=== PATIENT | female | born 1960 | race African-American/Black ===

== ENCOUNTER 2021-02-28 14:38 | Outpatient (REF) | payer MEDICARE, SELFPAY ==
[2021-02-28 16:33] LABS: Binax Internal Control QC Valid; Binax Lot number: 9864; Binax Now Covid-19 Ag Negative (Negative)
== END 2021-02-28 14:39 | disposition home or self-care (01) ==
LOC: HO.LAB 14:38
PROVIDERS: Visit Provider Internal Medicine
DX: Z20.822 Contact with and (suspected) exposure to COVID-19 (principal)
CPT/HCPCS: 36415; C9803

== ENCOUNTER 2024-02-08 09:33 | Outpatient (AMB) | payer OTHER, SELFPAY ==
--- NOTE | 2024-02-08 09:41 | AM.OFFWIN_ITS ---
Intake Vital Signs 02/08/24 09:51 Height 5 ft Weight 145 lb BMI 28.3 BP 130/88 Blood Pressure Location Rt brachial Position Sitting Pulse 81 Pulse Source Pulse Oximeter Pulse Oximetry (%) 97 Oxygen Delivery Method Room Air Intake Visit Reasons: EP UTI? Intake Note: Patient here for lower abd pain, right sided lower back pain which has been present for about 3 days. Patient Tobacco Use Status: Never used Tobacco Allergies No Known Allergies Allergy (Verified 02/08/24 10:05) Do you need a note to return to daycare/school/sports/work: No HPI HPI Comments History of Present Illness Details History of Present Illness The patient is a 63-year-old female presenting with lower abdominal pain, headache, lower back pain, and nausea. Her symptoms have been accompanied by a notable malodor in the urine and mild dysuria. The onset of these symptoms was unspecified, but there was a low-grade fever reported approximately on Thursday. There is no history of hematuria noted. The patient denies any known allergies to medications, although she recalls an unspecified reaction many years ago. Her current symptoms suggest a urinary tract infection, and she reports experiencing frequent urination. Physical Exam General: Cooperative, healthy appearing, comfortable, no acute distress and well developed Orientation: Patient oriented x3 Limitations: No limitations Head: Normal to inspection Ears: Hearing grossly normal bilaterally Nose: Normal external nose present Face and sinus: Normal facial exam Eyes: Appearance normal, both eyes and all related structures Neck: Normal visual inspection and Yes full ROM Respiratory: Normal respiratory effort and able to speak in complete sentences. Skin: No rashes or lesions noted Neuro: Patient oriented x3 Extremities: Normal to inspection [facility] Social History Patient Tobacco Use Status: Never used Tobacco Review of Systems Const All systems reviewed & are unremarkable except as noted in HPI and below Physical Exam Vital Signs: Last Vital Signs Pulse 81 02/08/24 09:51 BP 130/88 02/08/24 09:51 Pulse Ox 97 02/08/24 09:51 Oxygen Delivery Method Room Air 02/08/24 09:51 BMI result Body Mass Index 28.3 Results AMB Urinalysis, Automated UA Leukoctes 70 Danuta/uL Last Edit by ROSELINE Denson on 02/08/24 09:5 9 UA Nitrite Negative Last Edit by ROSELINE Denson on 02/08/24 09:59 UA Urobilinogen 0.2 mg/dL [facility] 02/08/24 09:59 UA Protein 15 mg/dL Last Edit by Rosemarie Rose [facility] on 02/08/24 09:59 UA pH 6.0 Last Edit by Rosemarie Rose [facility] on 02/08/24 09:59 UA Blood 0 Wallace/uL Last Edit by Rosemarie Rose [facility] on 02/08/24 09:59 UA Specific [place] 1.025 Last Edit by Rosemarie Rose [facility] on 02/08/24 09:59 UA Ketone Negative Last Edit by Rosemarie Rose [facility] on 02/08/24 09:59 UA Bilirubin 1 mg/dL Last Edit by Rosemarie Rose [facility] on 02/08/24 09:59 UA Glucose 0 mg/dL Last Edit by Rosemarie Rose [facility] on 02/08/24 09:59 Results Reviewed Results Reviewed: Laboratory Last Values Urine pH (Auto) 6.0 02/08/24 09:58 Specific [place] (Auto) 1.025 02/08/24 09:58 Urine Protein (Auto) 15 mg/dL 02/08/24 09:58 Glucose (UA)(Auto) 0 mg/dL 02/08/24 09:58 Urine Ketones (Auto) Negative 02/08/24 09:58 Urine Blood (Auto) 0 Wallace/uL 02/08/24 09:58 Urine Nitrite (Auto) Negative 02/08/24 09:58 Urine Bilirubin (Auto) 1 mg/dL 02/08/24 09:58 Urine Urobilinogen (Auto) 0.2 mg/dL 02/08/24 09:58 Leukocyte Esterase (Auto) 70 Danuta/uL 02/08/24 09:58 Assessment & Plan Assessment & Plan (1) UTI (urinary tract infection): Code(s): N39.0 - Urinary tract infection, site not specified Qualifiers: Urinary tract infection type: acute cystitis Hematuria presence: without hematuria Qualified Code(s): N30.00 - Acute cystitis without hematuria Plan: Plan The patient has been diagnosed with a urinary tract infection based on UA + leuks, neg nitrites and her symptomatology. I will prescribe cefuroxime, to be taken twice daily for five days. In addition, a urine culture will be sent to confirm the presence of bacteria and ensure that the chosen antibiotic adequately covers the infection. In the event that the culture grows bacteria not covered by cefuroxime, the patient will be contacted to discuss alternative antibiotic therapy. The medication has been sent to [facility] in [place]. Patient was informed and verbally consented to the use of an ambient scribe for clinic note documentation during this visit. Orders: Orders AMB Urinalysis Automated Today Z13.9 - Encounter for screening, unspecified Urine Culture Today N39.0 - Urinary tract infection, site not specified Medications: New cefuroxime axetil 500 mg PO Q12H 10 tabs 0RF Coding Level of Care Code New Pt Level 3 (67493) Diagnoses Acute cystitis without hematuria N30.00 Urinary tract infection type: acute cystitis Hematuria presence: without hematuria
[2024-02-08 09:51] VITALS: BP 130/88; PULSE 81; O2SAT 97; BMI 28.3
--- OUTSIDE RECORDS SUMMARY | 2024-02-10 14:00 | XMS_ITS | Data Portability ---
Author Organization [place] - [facility], [facility] Address [address] [place] [address] Care Team Providers Care Electrician Aircraft Name Role Phone LING ROTH Primary Care Provider Assessment Encounter Date Assessment Date Assessment LastModified by Organization Details LastModified Time 01/29/2015 01/29/2015 NL CAN TOP SETTER EXAM aomrani Not available 12:24:11 09/27/2015 09/27/2015 OVARIAN CYST aomrani Not available 0 09/27/2015 11:38:55 Plan of Treatment Reminders Order Date Submit Date Provider Last Modified By Organization Details Last Modified Time Details Appointments None recorded. Lab pap, IG + HPV 2014 015 ANAIS Not available 5 04:00:46 urinalysis , dipstick 2014 015 aomrani In-Office Order, Internal Use Only DO Not Attach Compendium DO Not Attach Compendium, Do Not Delete/merge, [id number] 5 12:25:17 Referral None recorded. Procedures None recorded. Surgeries None recorded. Imaging MAMMO, screening, digital, bilateral 2014 015 dfabiano Not available 5 15:32:38 Medication Orders None recorded. Patient TargetsNo targets recorded. Patient Instructions Encounter Date Encounter Id Patient Instructions Last Modified By Organization Details Last Modified Time 01/29/2015 [id number] Stress Incontinence: Care Instructions mannitto Not available 02/01/2015 11:33:15 Patient presents for a well woman exam. Her history is unremarkable and her exam is normal. She has been counseled regarding Pap smear screening as per guidelines of every three years for cytology review with high risk HPV testing. I have recommended an annual Digital Bilateral Mammogram and an order sheet has been given to her. She has been counseled regarding menopausal symptoms including hot flushes, vaginal dryness, mood changes, and difficulty sleeping. She has been offered an appointment to speak to me specifically about these symptoms and some strategies to ease them if and when they occur. I have counseled her about the benefit of performing monthly self-breast exams. We spoke about the recommendation of 1200 mg of daily Calcium supplementation and 600iu of Vitamin D daily. She has been told to schedule a well woman Transmitter Chief exam in one year and to call us with any question or concerns regarding her health and welfare. acharette Not available 01/29/2015 11:28:55 Reason for Referral None Reported. Results Created Date Observation Date Name Description Value Unit Range Abnormal Flag Note LastModifiedBy Organization Detail LastModifiedTime 01/29/2015 urina lysis , dipst ick Interpretati on negati ve Not Available In-Office Order Internal Use Only DO Not Attach Compendium DO Not Attach Compendium, Do Not Delete/merge, [id number] 01/29/2015 12:00:06 01/30/20 15 02/02/2015 pap, IG + HPV HPV result Negati ve negati ve APTIM A HPV assay detec ts 14 high risk HPV types (HPV 16,18 ,31,3 3,35, 39,45 , 51,52 ,56,5 8,59, 66,68 ). The assay is FDA appro mon[place] for testi ng ThinP rep liqui d Pap vials but not FDA appro monica for detec ting HPV in SureP ath liqui d Pap speci mens. In-ho use valid ation has shown the assay can detec t all HPV types from this sourc e. Not Available [facility] [address] [facility], [place], [address], 02/03/2015 04:00:46 01/30/20 15 02/03/2015 pap, IG + HPV report GYNEC OLOGI SALMA CYTOL OGY REPOR T THINP REP PAP (IMAG ER) WITH HPV SCREE N AND REFLE X TO HPV 16,18 /45 SPECI MEN ADEQU ACY: SATIS FACTO RY FOR EVALU ATION ; ENDOC ERVIC AL/TR ANSFO RMATI ON ZONE COMPO NENT PRESE NT. INTER PRETA TION: NEGAT RASTA FOR INTRA EPITH ELIAL LESIO N OR MALIG SUSAN . Elect ki petersen Glo d Out By: SHELDON GARCIA , [place] ([facility] ) CLINI [facility] INFOR MATLUCERO N: LMP: NI Sourc e CERVI X/END OCERV IX Numbe r of vials /slid es submi tted 1 Diagn osis / ICD CODE Z01.4 19 Hyste recto my N/A Abnor mal Pap Date NI Autom ated presc reeni ng of all liqui d based speci mens is perfo rmed by the [facility] rep Imagi ng Syste m or [place] , unles s other [place] state d. The Pap test is a scree little test with an inher ent false negat rasta rate. Nino s noted , this case was scree [facility] [address] [address] [place] Reg # [id number]. [phone] Not Available [facility] [address] [place], [address], 02/03/2015 04:00:46 09/05/19 16 09/05/2015 [facility] [address] [place] [address], [address], 09/21/2015 10:06:47 09/10/19 16 08/29/2015 MAMMO , scree little, digit al, bilat eral No observ ation record ed. ifuller Not Available 2015 11:04:38 11/22/19 16 11/22/2015 US, trans vagin al RAD [facility] [address] [place], [address], 11/22/2015 12:03:26 Result Notes None recorded. Problems Name Problem SNOMED Code Status Onset Date Resolution Date Notes Provider Name and Address Organization Details Recorded Time Urinary incontinence 577968076 Active LANCE HUNTER MD [address], [place], [address], [place] - [facility] 5 12:25:17 Abdominal distension Active LANCE HUNTER MD [address], [place], [address], [place] - [facility] 6 11:38:55 Problem Notes None recorded. Procedures Surgical History Date Name Laterality Status Provider Name and Address Organization Details Recorded Time 6 Date of Last Mammogram completed Lorna [place] - [facility] 09/07/2015 15:24:15 5 Q1I-KQN completed LANCE HUNTER MD [address] [facility] [facility], [place], [address], [place] [facility] 01/29/2015 12:23:22 5 T7J-LSX completed LANCE HUNTER MD [address] [facility] [facility], [place], [address], [place] - [facility] 01/29/2015 12:23:22 5 [id number]-[id number] completed LANCE HUNTER MD [address] [facility], [address] [facility], [place], [address], [place] - [facility] 01/29/2015 12:23:22 5 [id number] completed LANCE HUNTER MD [address] [facility] [facility], [place], [address], [place] - [facility] 01/29/2015 12:23:22 Imaging Results Imaging Date Name Status LastModified by Organization Details LastModified Time 09/05/2015 US, transvaginal completed aaron Gamblen [facility] [place] [address] [place], [address], 09/21/2015 10:06:47 08/29/2015 MAMMO, screening, digital, bilateral completed ifuller Information not available 09/10/2015 11:04:38 11/22/2015 US, transvaginal completed aomrani [facility] [address] [facility], [place], [address], 11/22/2015 12:03:26 Procedure Notes None recorded. Medical Equipment None Reported. Allergies No known drug allergies Medications Name Sig Start Date Stop Date Status Note LastModified by Organization Details LastModified Time amoxicillin 500 mg capsule active Not Available Not Available Not Available prednisone 10 mg tablet active Not Available Not Available Not Available ipratropium 0.5 mg-albuterol 3 mg (2.5 mg base)/3 mL nebulization soln active Not Available Not Avai lable Not Available clindamycin HCl 300 mg capsule active Not Available Not Available N ot Available citalopram 40 mg tablet active Not Available Not Available Not Available triazolam 0.25 mg tablet active Not Available Not Available Not Available azithromycin 250 mg tablet active Not Available Not Available Not Available ibuprofen 800 mg tablet active Not Available Not Available Not Available prednisone 20 mg tablet active Not Available Not Available Not Available prednisone 5 mg tablet active Not Available Not Available Not Available methylprednisolone 4 mg tablet active Not Available Not Available Not Available methylphenidate ER 54 mg tablet,extended release 24 hr active Not Available Not Availabl e Not Available acetaminophen 300 mg-codeine 30 mg tablet active Not Available Not Available Not Available amoxicillin 875 mg tablet active Not Available Not Available Not Available prednisone 50 mg tablet active Not Available Not Available Not Available Advair Diskus 500 mcg-50 mcg/dose powder for inhalation active Not Available Not Available N ot Available folic acid 1 mg tablet active Not Available Not Available Not Available topiramate 200 mg tablet active Not Available Not Available Not Available furosemide 20 mg tablet active Not Available Not Available Not Available gabapentin 100 mg capsule active Not Available Not Available Not Available ipratropium bromide 42 mcg (0.06 %) nasal spray active Not Available Not Available Not Available naproxen 500 mg tablet active Not Available Not Available Not Available methylphenidate ER 36 mg tablet,extended release 24 hr active Not Available Not Availabl e Not Available Zetia 10 mg tablet active Not Availabl e Not Available Not Available rosuvastatin 40 mg tablet active Not Available Not Available Not Available bupropion HCl XL 300 mg 24 hr tablet, extended release active Not Available Not Available Not Available Vytorin 10 mg-40 mg tablet active Not Available Not Available Not Available magnesium active Not Available Not Susy ilable Not Available Fish Oil active Not Available Not Avai lable Not Available Calcium 500 active Not Available Not A vailable Not Available ProAir HFA 90 mcg/actuation aerosol inhaler active Not Available Not Availa ble Not Available Repatha SureClick 140 mg/mL subcutaneous pen injector active Not Available Not Available Not Available Vitals Date Recorded Body weight Body height Body mass index (BMI) Systolic blood pressure Diastolic blood pressure Provider Name and Address Organization Details Last Updated DateTime 01/29/2015 43689.88 764 g 154.94 cm 32.5 kg/m2 140 mm[Hg] 76 mm[Hg] Promise Germainette [facility] 5 11:58:10 Date Recorded Body weight Systolic blood pressure Diastolic blood pressure Provider Name and Address Organization Details Last Updated DateTime 09/27/2015 82072.5563 1 g 128 mm[Hg] 76 mm[Hg] [email or web address] [address] [facility], [place], [address], [facility] 09/27/2015 10:30:29 Social History Question Answer Notes LastModified by Organizat ion Details LastModified Time Tobacco Smoking Status Never Smoker [facility]2015 11:57:37 What Is Your Level Of Alcohol Consumption? None Information not available 01/29/2015 Drug Use? No Information no t available 01/29/2015 Sex: Unknown Functional Status Question Answer Note LastModified by Organization D etails LastModified Time What is your exercise level? None Information not available 01/29/2015 Mental Status None recorded. Family History Relationship Description Onset Age of this Age Resolved Age Notes LastModified by Organization Details LastModified Time Mother Pulmonary emphysema acharette Not available 2014 11:57:37 Sister Diabetes mellitus acharette Not available 2014 11:57:37 Maternal Grandfather Heart disease acharette Not available 2014 11:57:37 Paternal Aunt Parkinson's disease acharette Not available 2014 11:57:37 Medical History No medical history recorded. Gynecological History Statement/Question Response Date of Last Mammogram 08/29/2015 Obstetrics History GPAL:G 0 P 0 0 0 0 Past Encounters Encounter ID Performer Location Encounter Start Date Encounter Closed Date Diagnosis/Indication Diagnosis SNOMED-CT Code Diagnosis ICD10 Code [id number] LANCE HUNTER MD [facility] [address] [place] [address] 01/29/2015 11:24:03 01/30/2015 10:02:14 Gynecologic examination 69054822 Z01.419 Screening mammography 24 302352 Z12.31 Urinary incontinence 165 175172 R32 Abdominal distension 419 19924 R14.0 [id number] LANCE HUNTER MD [facility] [address] [place] [address] 09/27/2015 10:16:49 09/27/2015 15:19:07 Abdominal distension 18311650 R14.0 Health Concerns Section Related Observation LastModified by Organization Detai ls LastModified Time None Recorded Concern Status LastModified by Organization Details LastModified Time None Recorded Advance Directives Directive None Recorded Payers Encounter Date Sequence Insurance Name Policy Number Policy Cunningham Covered Member ID Cunningham Member ID Guarantor Name 01/29/2015 1 [place] [id number] Brooke Gage [id number] Brooke Gage 09/27/2015 1 [place] [id number] Brooke Gage [id number] Brooke Gage Notes Date Note Type Note Provider Name and Address Organization Details Recorded Time 01/29/2015 text/html [facility] Annual GYNReported bypatient.History: no change in interval history Menstrual cycle:Normal menses Urinary symptoms:No hematuria;Incontin ence;Increased urinary frequency Vulva:No genital lesion Vagina:Normal vaginal discharge Breast:No breast pain; No breast lump; No nipple discharge Sexual complaints:No sexual complaints; No pain during intercourse; Normal libido Menopausal Symptoms:No menopausal symptoms Psychological symptoms:No depression; No anxiety; No PMDD Preventive measures:Encourage self breast examination; Encourage regular exercise; Encourage regular mammograms starting age 40; Followed with Q3 year pap smear and high risk HPV typingNotes:C/O INCREASED ABDOMINAL DISTENTION LANCE HUNTER MD [address] [place] [address], [address], [address], [place] - [facility] 01/29/2015 12:25:27 09/27/2015 text/html RESULTS OF U/S SHOWING 2.5CM ?OV. VS PARATUBAL CYST DISCUSSED WITH PT. RECOMMEND EVAL BY HER PCP/GI FOR HER SYMPTOMS OF BLOATING. PLAN TO REPEAT U/S IN 2 MOS TO F/U ON SMALL OV CYST. TIME 15MINS. LACNE HUNTER MD [address] [place] [address], [address], [place], [address], [place] - [facility] 09/27/2015 11:39:05 OBGyn Episode No OBEpisode recorded.
== END 2024-02-08 10:08 | disposition home or self-care (01) ==
PROVIDERS: PCP Internal Medicine; Visit Provider Physician Assistant
DX: N30.00 Acute cystitis without hematuria (principal); Z13.9 Encounter for screening, unspecified

== ENCOUNTER 2024-02-08 09:33 | Outpatient (REF) | payer OTHER, SELFPAY | END 2024-02-08 09:34 | disposition home or self-care (01) | LOC: HO.LAB 09:33 | PROVIDERS: PCP Internal Medicine; Visit Provider Physician Assistant | DX: N39.0 Urinary tract infection, site not specified (principal); B96.20 Unspecified Escherichia coli [E. coli] as the cause of diseases classified elsewhere | CPT/HCPCS: 81003; 87086; 87088; 87186 ==